=== PATIENT | male | born 1955 | race Caucasian/White ===

== ENCOUNTER 2017-02-18 09:44 | Emergency (ER) | payer OTHER ==
[~2017-02-18] VITALS: Ht 167.6 cm; Wt 96.0 kg
[~2017-02-18 09:44] MED LIST: ATORVASTATIN CA10 MG PO; CLEOCIN300 MG PO; DILAUDID2 MG PO; DOXYCYCLINE HY100 M3 PO; DULOXETINE HCL30 MG PO; DURAGESIC100 MCG TD; DURAGESIC100 MICROG TD; DURAGESIC12 MCG TD; FORTAMET500 M1 PO; HUMALOG100 UNIT/2 SC; KADIAN30 MG PO; KADIAN60 MG PO; LEVEMIR FL100 UNIT/1 SC; METFORMIN HCL500 M2; MORPHINE SULFAT15 MG PO; MULTIVITAMIN1 EAC1; MULTIVITAMIN1 EAC2 PO; OMEPRAZOLE40 M1 PO; PERCOCET 5/31 TABLET PO; TYLENOL WITH C1 EACH PO; VALIUM10 MG; VIMOVO PO; VITAMIN C100 MG
[2017-02-18 10:19] LABS: HEMATOCRIT 40.6 % (38.0-50.0); MCHC 34.2 G/DL (30.0-36.0); MCV 87.7 FL (86-99); MEAN PLAT.VOLUME 12.1 uM^3 (9.0-12.4); PLATELET COUNT 82 K/uL (156-360); RBC DIS.WIDTH-CV 13.4 % (11.8-14.6); RBC DIS.WIDTH-SD 43.6 % (39-53); RED BLOOD COUNT 4.63 M/uL (4.00-5.50); WHITE BLOOD COUNT 7.5 K/uL (4.1-10.2)
[2017-02-18 10:29] LABS: CHLORIDE 103 mEq/L (99-109); POTASSIUM 4.7 mEq/L (3.7-5.4); SODIUM 136 mEq/L (136-147)
[2017-02-18 10:32] LABS: ANION GAP 8 MEQ/L (2-14)
[2017-02-18 10:34] LABS: GFR ESTIMATE (CALCULATED) > 59 mL/min/ (58.99-99999)
[2017-02-18 10:35] LABS: GLUCOSE 236 mg/dL (70-99); UREA NITROGEN (BUN) 10 mg/dL (9-23)
[2017-02-18] MEDS ORDERED: PREDNISONE20 MG PO (12:37)
[2017-02-18] MEDS ORDERED: TESSALON200 MG PO (12:37)
[2017-02-18] MEDS ORDERED: PROVENTIL,2.5 MG/3 M IH (12:39)
[2017-02-18 12:48] VITALS: BP 142/94
[2017-02-19] MEDS ORDERED: FLEXERIL10 MG PO (21:34)
== END 2017-02-18 12:49 | disposition home or self-care (01) ==
LOC: EME 09:44
DX: J44.1 Chronic obstructive pulmonary disease with (acute) exacerbation (principal); E11.9 Type 2 diabetes mellitus without complications; Z88.0 Allergy status to penicillin
CPT/HCPCS: 71020; 80048; 85027; 94640; 99281; 99284; J7512

== ENCOUNTER 2017-02-19 12:03 | Emergency (ER) | payer OTHER ==
[~2017-02-19] VITALS: Ht 167.6 cm; Wt 95.0 kg
[~2017-02-19 12:03] MED LIST changes: +PREDNISONE20 MG PO; +PROVENTIL,2.5 MG/3 M IH; +TESSALON200 MG PO
[2017-02-19 12:07] VITALS: BP 158/94
[2017-02-19] MEDS ORDERED: FLEXERIL10 MG PO (21:34)
== END 2017-02-19 12:41 | disposition left against medical advice (07) ==
LOC: EME 12:03
DX: M43.6 Torticollis (principal); R51 Headache; Z53.21 Procedure and treatment not carried out due to patient leaving prior to being seen by health care provider

== ENCOUNTER 2017-02-19 19:30 | Emergency (ER) | payer OTHER ==
[~2017-02-19] VITALS: Ht 167.6 cm; Wt 96.1 kg
[2017-02-19] MEDS ORDERED: FLEXERIL10 MG PO (21:34)
[2017-02-19 21:53] VITALS: BP 105/86
== END 2017-02-19 21:54 | disposition home or self-care (01) ==
LOC: EME 19:30
DX: M62.838 Other muscle spasm (principal); M54.2 Cervicalgia; J44.9 Chronic obstructive pulmonary disease, unspecified; K21.9 Gastro-esophageal reflux disease without esophagitis; Z88.0 Allergy status to penicillin; Z87.891 Personal history of nicotine dependence
CPT/HCPCS: 99281; 99283

== ENCOUNTER 2017-02-20 11:42 | Observation (INO) | payer OTHER ==
[~2017-02-20] VITALS: Ht 167.6 cm; Wt 96.5 kg
[~2017-02-20 11:42] MED LIST changes: +FLEXERIL10 MG PO
[2017-02-20 14:02] LABS: EOSINOPHIL (%) 0.1 % (0-5); HEMATOCRIT 39.6 % (38.0-50.0); IMMATURE GRANULOCYTE (%) 0.6 % (0.0-0.7); IMMATURE GRANULOCYTE COUNT 0.1 K/uL; INSTRUMENT ABS NEUTROPHIL CT 8.9 K/uL; LYMPHOCYTE COUNT 0.7 K/uL (1.0-2.8); MCH 30.2 PG (29.0-34.0); MCHC 34.3 G/DL (30.0-36.0); MONOCYTE (%) 4.9 % (3-12); MONOCYTE COUNT 0.5 K/uL (0-0.8); NEUTROPHIL (%) 87.4 % (45-76); NEUTROPHIL COUNT 8.9 K/uL (1.8-6.4); PLATELET COUNT 83 K/uL (156-360); RBC DIS.WIDTH-CV 13.6 % (11.8-14.6); WHITE BLOOD COUNT 10.2 K/uL (4.1-10.2)
[2017-02-20 14:09] LABS: CHLORIDE 98 mEq/L (99-109); POTASSIUM 4.9 mEq/L (3.7-5.4); SODIUM 134 mEq/L (136-147)
[2017-02-20 14:11] LABS: GLUCOSE 284 mg/dL (70-99)
[2017-02-20 14:13] LABS: ANION GAP 13 MEQ/L (2-14); TOTAL BILIRUBIN 1.6 mg/dL (0.0-1.0)
[2017-02-20 14:15] LABS: ALKALINE PHOSPHATASE 100 IU/L (3-129); GFR ESTIMATE (CALCULATED) > 59 mL/min/ (58.99-99999)
[2017-02-20 14:16] LABS: UREA NITROGEN (BUN) 16 mg/dL (9-23)
[2017-02-20 20:09] VITALS: BP 145/79
[2017-02-20 21:28] LABS: POINT-OF-CARE METER ID UU13113700
[2017-02-20 23:33] VITALS: BP 115/61
[2017-02-21 07:23] VITALS: BP 107/64
[2017-02-21 09:09] LABS: POINT-OF-CARE METER ID UU14162513
[2017-02-21 12:33] LABS: POINT-OF-CARE METER ID UU13113700
[2017-02-21 12:47] VITALS: BP 127/60
[2017-02-21 17:07] VITALS: BP 148/82
[2017-02-21] MEDS ORDERED: CELEBREX200 MG PO (17:26)
[2017-02-21] MEDS ORDERED: MEDROL DOSEPAK4 MG PO (17:26)
[2017-02-21] MEDS ORDERED: MORPHINE SULFAT15 MG PO (17:26)
[2017-02-21] MEDS ORDERED: CYCLOBENZAPRINE10 MG PO (17:33)
[2017-02-21 18:22] LABS: POINT-OF-CARE METER ID UU14162513
[2017-02-21] MEDS ORDERED: POLYETHYLENE GL17 GM PO (19:05)
== END 2017-02-21 19:59 | disposition home or self-care (01) ==
LOC: EME 11:42 → EDOF 19:21 → 5WEST 19:21 → ENRESERV 19:24 → 5WEST 20:08
PROVIDERS: Family Medicine; Physician Assistant
DX: G89.29 Other chronic pain (principal); M54.12 Radiculopathy, cervical region; M48.02 Spinal stenosis, cervical region; E11.9 Type 2 diabetes mellitus without complications; Z79.4 Long term (current) use of insulin; M54.5 Low back pain; M19.90 Unspecified osteoarthritis, unspecified site; E78.5 Hyperlipidemia, unspecified; K21.9 Gastro-esophageal reflux disease without esophagitis; J44.9 Chronic obstructive pulmonary disease, unspecified; J98.01 Acute bronchospasm; Z98.1 Arthrodesis status; Z88.0 Allergy status to penicillin
CPT/HCPCS: 72125; 80053; 82948; 85025; 94640; 94640 76; 94760; 99202; 99281; 99285; G0378; J1650; J1815; J2060; J2270; J7512